=== PATIENT | male | born 1960 | race Caucasian/White ===

== ENCOUNTER 2017-02-12 19:18 | Emergency (ER) | payer MEDICARE | END 2017-02-12 21:37 | disposition left against medical advice (07) | LOC: ER1 19:18 | DX: Z53.21 Procedure and treatment not carried out due to patient leaving prior to being seen by health care provider (principal) | CPT/HCPCS: 93005 ==

== ENCOUNTER → 2021-03-04 | Outpatient (CLI) | payer MEDICARE, OTHER ==
[~2021-03-04] MED LIST: ALDACTONE25 MG PO; ALLOPURINOL300 MG PO; ASPIR 8181 MG PO; AZITHROMYCIN250 MG PO; BREO ELLIPTA 11 EACH INH; BUMETANIDE1 MG PO; BUMEX 1MG TABLET1 MG PO; CEFPODOXIME PR200 MG PO; COREG6.25 MG PO; COZAAR50 MG PO; DEXILANT60 MG PO; DIGOX125 MCG PO; ELIQUIS 2.5 MG2.5 MG PO; ELIQUIS 5 MG TAB5 MG PO; ENULOSE10 GM/15 M PO; EUTHYROX150 MCG PO; FLEXERIL 10 MG10 MG PO; GABAPENTIN600 MG PO; GABAPENTIN800 MG PO; HUMULIN R100 UNIT/1 SQ; LANOXIN TAB0.125 MG PO; LEVAQUIN500 MG PO; LEVOCETIRIZINE D5 MG PO; OMEPRAZOLE20 M1 PO; OMNICEF 300 MG300 MG PO; PHENERGAN 12.12.5 M1 PO; PHENERGAN 25 MG25 M1 PO; PRAVACHOL40 MG PO; REVATIO 20 MG T20 MG PO; SENNA-TIME S T1 EACH PO; TOUJEO MAX300 UNIT/1 SQ; TRESIBA FL100 UNIT/1 SQ; TRICOR48 MG PO; TYLENOL WITH C1 EACH PO; VENTOLIN HFA 66.7 GM INH; VICTOZA 1818 MG/3 ML SC; ZYLOPRIM 300 M300 MG PO
== END ==
LOC: EXRD 14:59
DX: I50.22 Chronic systolic (congestive) heart failure (principal); E66.9 Obesity, unspecified; I27.20 Pulmonary hypertension, unspecified; R91.8 Other nonspecific abnormal finding of lung field
CPT/HCPCS: 71046

== ENCOUNTER → 2021-08-31 | Outpatient (CLI) | payer MEDICARE, OTHER | LOC: NM 07:49 → EDSTATUS 08:10 | DX: M86.8X8 Other osteomyelitis, other site (principal); S91.301A Unspecified open wound, right foot, initial encounter | CPT/HCPCS: 78315; 93926; A9503 ==

== ENCOUNTER → 2021-09-10 | Outpatient (CLI) | payer MEDICARE, OTHER ==
[2021-09-10 15:47] LABS: RED BLOOD COUNT 3.7 M/UL (4.20-5.50); WHITE BLOOD COUNT 5.6 K/UL (4.5-11.0)
== END ==
LOC: LAB 15:17
PROVIDERS: Nurse Practitioner Family
DX: I11.0 Hypertensive heart disease with heart failure (principal); I50.9 Heart failure, unspecified; E78.49 Other hyperlipidemia; R07.9 Chest pain, unspecified; R06.02 Shortness of breath; I48.0 Paroxysmal atrial fibrillation; I25.5 Ischemic cardiomyopathy; D69.9 Hemorrhagic condition, unspecified
CPT/HCPCS: 36415; 85025

== ENCOUNTER 2021-09-24 16:06 | Inpatient (IN) | payer MEDICARE, OTHER ==
[~2021-09-24] VITALS: Ht 180.3 cm; Wt 112.9 kg
[~2021-09-24 16:06] MED LIST changes: -BREO ELLIPTA 11 EACH INH; -BUMEX 1MG TABLET1 MG PO; -GABAPENTIN800 MG PO; -PHENERGAN 25 MG25 M1 PO; -PRAVACHOL40 MG PO; -VENTOLIN HFA 66.7 GM INH; +ZYVOX600 MG PO
[2021-09-24 17:16] LABS: HEMOGLOBIN 10.5 gm/dl (14.0-17.5); RED BLOOD COUNT 3.47 M/UL (4.20-5.50)
[2021-09-24] MEDS ORDERED: LEVOFLOXACIN750 MG PO (21:46)
[2021-09-24] MEDS ORDERED: CIPROFLOXACIN500 M1 PO (21:47)
[2021-09-24] MEDS ORDERED: SILDENAFIL20 MG PO (21:48)
[2021-09-24] MEDS ORDERED: DESYREL 50 MG T50 MG PO (21:48)
[2021-09-24] MEDS ORDERED: ALDACTONE 25MG25 MG PO (21:51)
[2021-09-24] MEDS ORDERED: ZYLOPRIM 300 M300 MG PO (21:52)
[2021-09-24] MEDS ORDERED: PRAVASTATIN SOD40 MG PO (21:52)
[2021-09-25] MEDS ORDERED: PHENERGAN 25 MG25 M1 PO (01:03)
[2021-09-25 06:29] LABS: HEMOGLOBIN 9.4 gm/dl (14.0-17.5); WHITE BLOOD COUNT 6.5 K/UL (4.5-11.0)
[2021-09-25 06:30] LABS: RED BLOOD COUNT 3.1 M/UL (4.20-5.50)
[2021-09-25] MEDS ORDERED: TRELEGY ELLIPT1 EAC1 INH (07:38)
[2021-09-25] MEDS ORDERED: PRAVASTATIN SOD40 MG PO (07:50)
[2021-09-25] MEDS ORDERED: PROVENTIL HFA6.7 GM INH (08:46)
[2021-09-25] MEDS ORDERED: XYZAL5 MG PO (11:06)
[2021-09-25] MEDS ORDERED: TOUJEO MAX300 UNIT/1 SC (11:22)
[2021-09-25] MEDS ORDERED: VICTOZA 1818 MG/3 ML SC (11:23)
[2021-09-25] MEDS ORDERED: MULTIVITAMIN1 EACH PO (11:24)
[2021-09-25] MEDS ORDERED: IRON325 M1 PO (11:25)
[2021-09-25] MEDS ORDERED: MIDODRINE HCL10 MG PO (11:29)
[2021-09-25] MEDS ORDERED: ELIQUIS 2.5 MG2.5 MG PO (11:47)
[2021-09-25] MEDS ORDERED: BUMETANIDE2 MG PO (17:39)
[2021-09-25] MEDS ORDERED: NEURONTIN800 MG PO (17:40)
[2021-09-26 05:39] LABS: HEMOGLOBIN 9.5 gm/dl (14.0-17.5); RED BLOOD COUNT 3.13 M/UL (4.20-5.50); WHITE BLOOD COUNT 6.6 K/UL (4.5-11.0)
[2021-09-27 07:34] LABS: HEMOGLOBIN 8.5 gm/dl (14.0-17.5); RED BLOOD COUNT 2.91 M/UL (4.20-5.50); WHITE BLOOD COUNT 6.3 K/UL (4.5-11.0)
--- NOTE | 2021-09-27 11:10 | NUR ---
ASSISTED WITH PARACENTISIS AT BEDSIDE. PATIENT TOLERATED WELL. 3L OF FLUID REMOVED. SMALL INCISION NOTED TO RLQ. PRESSURE DRESSING APPLIED. NO DISTRESS NOTED. WCTM.
[2021-09-27 13:44] LABS: BODY FLUID SOURCE PERITONEAL
[2021-09-27 13:49] LABS: RBC (AUTOMATED) 10300 (0-100000); WBC (AUTOMATED) 299 (0-500)
[2021-09-27 13:50] LABS: MONONUCLEAR CELLS 47.8 (75-100); POLYMORPHONUCLEAR % 52.2 (0-25)
[2021-09-27 14:02] LABS: LDH, BODY FLUID 65 U/L; TOTAL PROTEIN, BODY FLUID 3.8 gm/dL
[2021-09-28 12:32] LABS: RED BLOOD COUNT 2.97 M/UL (4.20-5.50); WHITE BLOOD COUNT 5.5 K/UL (4.5-11.0)
[2021-09-29 05:36] LABS: HEMOGLOBIN 8.5 gm/dl (14.0-17.5); RED BLOOD COUNT 2.81 M/UL (4.20-5.50); WHITE BLOOD COUNT 4.7 K/UL (4.5-11.0)
--- NOTE | 2021-09-29 06:15 | NUR ---
CRITICAL LABS PLATELETS 23, BUN 114 NOTIFIED KIRBY WEBER THROUGH 32.9 NOTIFIED PHARM BRITTANEY ADVISED TO HOLD AT THIS TIME.
[2021-09-30 08:15] LABS: HBSAG SCREEN Negative (Negative); HEP A AB, IGM Negative (Negative); HEP B CORE AB, IGM Negative (Negative); HEP C VIRUS AB <0.1 (0.0-0.9)
--- NOTE | 2021-09-30 09:45 | NUR ---
Dr. Quiroz made aware of lab results- critical BUN oRDERS REC. TO CONS. GENERAL SURGERY FOR TEMP. DIALYSIS CATHETER
--- NOTE | 2021-09-30 19:25 | NUR ---
Notified Dr. Latham -telemetry reported patient had a 6 beat run of v-tach. No new orders rec. per Dr. Latham she would order lab work.
--- NOTE | 2021-10-01 03:33 | NUR ---
PT HAD TEMP DIALYSIS CATHETER PLACED TODAY TO RIGHT JUGULAR. NO DRESSING WAS IN PLACE AT ASSESSMENT. PT WAS PLACED WITH A MASK AND STERILE TECHNIQUE WAS USED TO PLACE DRESSING. PT TOLERATED WELL.
[2021-10-01 10:16] LABS: HEMOGLOBIN 7.9 gm/dl (14.0-17.5); RED BLOOD COUNT 2.6 M/UL (4.20-5.50); WHITE BLOOD COUNT 3.9 K/UL (4.5-11.0)
--- NOTE | 2021-10-01 16:14 | NUR ---
DIALYSIS NURSE CALLED RN AND STATED SHE WAS ABLE TO REMOVE 4 LITERS OF FLUID OVER 4 HOURS TODAY. SHE STATED THE PATIENT WAS STABLE AND TOLERATED DIALYSIS WELL. DIALYSIS NURSE ALSO VERBALIZED THAT PATIENT'S BLOOD PRESSURE HAD BEEN RUNNING LOW AND DR. MUHAMMAD WAS AWARE.
[2021-10-02 04:52] LABS: HEMOGLOBIN 8.1 gm/dl (14.0-17.5); RED BLOOD COUNT 2.71 M/UL (4.20-5.50); WHITE BLOOD COUNT 4.3 K/UL (4.5-11.0)
[2021-10-03 06:45] LABS: HEMOGLOBIN 7.9 gm/dl (14.0-17.5); RED BLOOD COUNT 2.62 M/UL (4.20-5.50); WHITE BLOOD COUNT 4.4 K/UL (4.5-11.0)
[2021-10-04 03:57] LABS: HEMOGLOBIN 8.3 gm/dl (14.0-17.5); RED BLOOD COUNT 2.77 M/UL (4.20-5.50)
[2021-10-04 03:58] LABS: WHITE BLOOD COUNT 8.6 K/UL (4.5-11.0)
[2021-10-05 05:49] LABS: HEMOGLOBIN 7.6 gm/dl (14.0-17.5); RED BLOOD COUNT 2.63 M/UL (4.20-5.50); WHITE BLOOD COUNT 9.3 K/UL (4.5-11.0)
[2021-10-06 06:09] LABS: HEMOGLOBIN 7.3 gm/dl (14.0-17.5); RED BLOOD COUNT 2.46 M/UL (4.20-5.50); WHITE BLOOD COUNT 8.1 K/UL (4.5-11.0)
[2021-10-07 04:59] LABS: HEMOGLOBIN 7.2 gm/dl (14.0-17.5); RED BLOOD COUNT 2.4 M/UL (4.20-5.50)
[2021-10-07 05:06] LABS: WHITE BLOOD COUNT 10.6 K/UL (4.5-11.0)
[2021-10-08 05:15] LABS: HEMOGLOBIN 8.6 gm/dl (14.0-17.5); RED BLOOD COUNT 2.85 M/UL (4.20-5.50); WHITE BLOOD COUNT 13.6 K/UL (4.5-11.0)
[2021-10-09 03:42] LABS: HEMOGLOBIN 8.9 gm/dl (14.0-17.5); RED BLOOD COUNT 2.95 M/UL (4.20-5.50)
--- NOTE | 2021-10-10 06:51 | NUR ---
CALLED PT'S CODY, INFORMED HER THAT MR. SERVIN HAD , SHE IS COMING TO THE HOSPITAL
--- NOTE | 2021-10-10 07:00 | NUR ---
POSTMORTUM CARE DONE, IV AND MALIK CATHETER REMOVED, PT BATHED
--- NOTE | 2021-10-10 07:20 | NUR ---
AND FAMILY AT BEDSIDE
--- NOTE | 2021-10-10 09:45 | NUR ---
[facility] HERE TO COLLECT PT BODY AT THIS TIME
== END 2021-10-10 06:50 | disposition expired | DRG 432 ==
LOC: ER1 16:06 → MED SURG 4 18:29 → CDU 18:29 → MED SURG 4 19:55 → PROG CARE 10-03 07:20 → CCU 10-04 13:02 → PROG CARE 10-08 12:15
PROVIDERS: Internal Medicine; Internal Medicine Nephrology; Preventive Medicine Occupational Medicine; ADMIT Internal Medicine
PROC: 30233N1 Transfusion of Nonautologous Red Blood Cells into Peripheral Vein, Percutaneous Approach (ICD-10-PCS; 2021-09-26)
PROC: 0W9G3ZZ Drainage of Peritoneal Cavity, Percutaneous Approach (ICD-10-PCS; principal; 2021-09-27)
PROC: 05HM33Z Insertion of Infusion Device into Right Internal Jugular Vein, Percutaneous Approach (ICD-10-PCS; 2021-09-30)
PROC: 30233K1 Transfusion of Nonautologous Frozen Plasma into Peripheral Vein, Percutaneous Approach (ICD-10-PCS; 2021-09-30)
PROC: 5A1D70Z Performance of Urinary Filtration, Intermittent, Less than 6 Hours Per Day (ICD-10-PCS; 2021-09-30)
PROC: 5A1D70Z Performance of Urinary Filtration, Intermittent, Less than 6 Hours Per Day (ICD-10-PCS; 2021-10-01)
PROC: 3E033XZ Introduction of Vasopressor into Peripheral Vein, Percutaneous Approach (ICD-10-PCS; 2021-10-03)
PROC: 5A09457 Assistance with Respiratory Ventilation, 24-96 Consecutive Hours, Continuous Positive Airway Pressure (ICD-10-PCS; 2021-10-04)
PROC: 5A1D70Z Performance of Urinary Filtration, Intermittent, Less than 6 Hours Per Day (ICD-10-PCS; 2021-10-05)
PROC: 5A1D70Z Performance of Urinary Filtration, Intermittent, Less than 6 Hours Per Day (ICD-10-PCS; 2021-10-07)
DX: K74.60 Unspecified cirrhosis of liver (principal); I50.23 Acute on chronic systolic (congestive) heart failure; J96.01 Acute respiratory failure with hypoxia; J96.02 Acute respiratory failure with hypercapnia; K76.7 Hepatorenal syndrome; J18.9 Pneumonia, unspecified organism; G93.41 Metabolic encephalopathy; A41.9 Sepsis, unspecified organism; R65.21 Severe sepsis with septic shock; I42.8 Other cardiomyopathies; I13.0 Hypertensive heart and chronic kidney disease with heart failure and stage 1 through stage 4 chronic kidney disease, or unspecified chronic kidney disease; N17.9 Acute kidney failure, unspecified; E87.2 Acidosis; R04.2 Hemoptysis; I48.19 Other persistent atrial fibrillation; D61.818 Other pancytopenia; R18.8 Other ascites; I47.1 Supraventricular tachycardia; K76.6 Portal hypertension; Z51.5 Encounter for palliative care; Z66 Do not resuscitate; E11.40 Type 2 diabetes mellitus with diabetic neuropathy, unspecified; Z20.822 Contact with and (suspected) exposure to COVID-19; E78.5 Hyperlipidemia, unspecified; E03.9 Hypothyroidism, unspecified; R03.0 Elevated blood-pressure reading, without diagnosis of hypertension; E11.22 Type 2 diabetes mellitus with diabetic chronic kidney disease; G89.29 Other chronic pain; R53.81 Other malaise; D63.1 Anemia in chronic kidney disease; I27.20 Pulmonary hypertension, unspecified; N18.30 Chronic kidney disease, stage 3 unspecified; J44.9 Chronic obstructive pulmonary disease, unspecified; K72.90 Hepatic failure, unspecified without coma; K75.81 Nonalcoholic steatohepatitis (NASH); L89.306 Pressure-induced deep tissue damage of unspecified buttock; I50.810 Right heart failure, unspecified; E66.9 Obesity, unspecified; E87.6 Hypokalemia; M10.9 Gout, unspecified; Z95.810 Presence of automatic (implantable) cardiac defibrillator; Z88.8 Allergy status to other drugs, medicaments and biological substances; Z82.49 Family history of ischemic heart disease and other diseases of the circulatory system; Z98.890 Other specified postprocedural states; Z87.01 Personal history of pneumonia (recurrent); Z87.891 Personal history of nicotine dependence; Z79.4 Long term (current) use of insulin; Z79.899 Other long term (current) drug therapy; Z98.41 Cataract extraction status, right eye; Z82.5 Family history of asthma and other chronic lower respiratory diseases; Z68.34 Body mass index [BMI] 34.0-34.9, adult
CPT/HCPCS: 36415; 36430; 36600; 70450; 71045; 74018; 76705; 80048; 80053; 80074; 80162; 80202; 81001; 82140; 82550; 82553; 82565; 82570; 82803; 82945; 82962; 83036; 83540; 83550; 83605; 83615; 83690; 83735; 83874; 83880; 83986; 84100; 84132; 84133; 84156; 84157; 84300; 84439; 84443; 84484; 85025; 85027; 85610; 85652; 86140; 86850; 86900; 86901; 86920; 87040; 87070; 87205; 89051; 90935; 90937; 92610; 93005; 94640; 94660; 94664; 94760; 96374; 96375; 97161; 99285; A6212; C1729; C9113; J0696; J1335; J1642; J1956; J2185; J2270; J2354; J2405; J3370; J3430; J7030; J7040; J7050; J7070; P9016; P9035; P9037; P9047; U0002